=== PATIENT | female | born 1955 | race Caucasian/White ===

== ENCOUNTER 2019-07-04 05:37 | Day surgery (SDC) | payer BC ==
[2019-06-27 09:55] LABS: BASOPHILS % (AUTO) 0.7 % (0-1); EOSINOPHILS # (AUTO) 0.1 X10'3 (0-0.9); EOSINOPHILS % (AUTO) 1.9 % (0-6); LYMPHOCYTES % (AUTO) 30.3 % (21-51); MEAN CORPUSCULAR HEMOGLOBIN 31.5 PG (27.0-31.0); MEAN CORPUSCULAR HGB CONC 33.7 g/dL (33.0-36.5); MEAN CORPUSCULAR VOLUME 93.5 FL (78-98); MEAN PLATELET VOLUME 7.7 FL (7.4-10.4); MONOCYTES # (AUTO) 0.5 X10'3 (0-0.9); MONOCYTES % (AUTO) 7.5 % (2-12); NEUTROPHILS % (AUTO) 59.6 % (42-75); PRE OP HEMATOCRIT 43.2 % (35.0-45.0); PRE OP HEMOGLOBIN 14.6 g/dL (12.0-16.0); PRE OP PLATELET COUNT 312 X10'3 (140-440); RED BLOOD COUNT 4.62 X10'6 (4.20-5.60); RED CELL DISTRIBUTION WIDTH 13.6 % (11.5-14.5)
[2019-06-27 10:08] LABS: ALBUMIN 3.5 G/DL (3.4-5.0); ALKALINE PHOSPHATASE 89 IU/L (46-116); BLOOD UREA NITROGEN 12 MG/DL (7-18); BUN/CREATININE RATIO 17.6 (6.6-38.0); CALCIUM 8.1 MG/DL (8.5-10.1); CHLORIDE 104 MMOL/L (99-107); CREATININE 0.68 MG/DL (0.40-0.90); PRE OP ALT 17 U/L (30-65); PRE OP ANION GAP 3 (8-16); PRE OP AST 20 U/L (10-37); PRE OP BILIRUB, TOTAL 0.4 MG/DL (0.0-1.0); PRE OP GLUCOSE 93 MG/DL (70-104); PRE OP POTASSIUM 4.2 MMOL/L (3.4-5.1); PRE OP SODIUM 138 MMOL/L (135-145); TOTAL CARBON DIOXIDE 31.2 MMOL/L (24-32); TOTAL PROTEIN 6.9 G/DL (6.4-8.2); eGFR 88 ML/MIN
[~2019-07-04] VITALS: Ht 152.4 cm; Wt 46.8 kg
[2019-07-04] VITALS (10 sets, daily range): BP systolic 122–177; BP diastolic 79–107
[~2019-07-04 05:37] MED LIST: ARIP5TAB14 PO; DANT25CA2 PO; DULO-31 PO; GABA300T26 PO; clindamycin-Cleocin 900mg/D5W 50 ML IV ONE; famotidine 20mg tablet PO ONE; ringers solution, lacted 1,000 ML IV SCH
[2019-07-04] MEDS ORDERED: LIDOcaine 1% 30ml preserv. free vial ONE (06:42)
[2019-07-04] MEDS ORDERED: BUPIVAcaine/PF 2.5mg/ml (0.25%) 10ml vial ONE (06:42)
[2019-07-04] MEDS ORDERED: BUPIVACAINE liposomal/PF 13.3 MG/ML vial IM ONE (06:43)
[2019-07-04] MEDS ORDERED: BUPIVAcaine/PF 2.5 mg/ml (0.25%) 30ml vial ONE (06:43)
[2019-07-04] MEDS ORDERED: fentaNYL/PF 50MCG/1 ML 2ML syringe ONE (07:17)
[2019-07-04] MEDS ORDERED: midazolam 2 mg/2 ml injection ONE (07:18)
[2019-07-04] MEDS ORDERED: neostigmine methylsulfate 1 MG/ML 10ml vial ONE (07:21)
[2019-07-04] MEDS ORDERED: ondansetron/PF 4mg/2ml inj ONE (07:21)
[2019-07-04] MEDS ORDERED: glycopyrrolate 0.2mg/ml inj ONE (07:21)
[2019-07-04] MEDS ORDERED: LIDOcaine 2% (20mg/ml) 5ml vial ONE (07:21)
[2019-07-04] MEDS ORDERED: propofol inj 20 ML IV ONE (07:21)
[2019-07-04] MEDS ORDERED: dexamethasone sod phosphate 4mg/ml inj. ONE (07:21)
[2019-07-04] MEDS ORDERED: rocuronium 10mg/ml inj IV ONE ×2 (07:21→14:28)
[2019-07-04] MEDS ORDERED: sevoflurane 250ml liquid IH ONE (07:44)
[2019-07-04] MEDS ORDERED: ringers solution, lacted 1,000 ML IV SCH (08:23)
[2019-07-04] MEDS ORDERED: meperidine/PF 25mg/ml syringe IV PRN ×3 (08:25)
[2019-07-04] MEDS ORDERED: proCHLORperazine 10 MG/2 ml inj IV PRN (08:25)
[2019-07-04] MEDS ORDERED: morphine 4 MG/ML inj SYRINge IV PRN (08:25)
[2019-07-04] MEDS ORDERED: ondansetron/PF 4mg/2ml inj IV PRN (08:25)
[2019-07-04] MEDS ORDERED: morphine 2 MG/ML inj. syringe IV PRN (08:25)
[2019-07-04] MEDS ORDERED: ePHEDrine 50MG/ML INJ. ONE (08:37)
[2019-07-04] MEDS ORDERED: sugammadex 200mg/2ml injection IV ONE (08:57)
--- NOTE | 2019-07-04 09:00 | NUR ---
Received from OR via BED , accompanied by Anesthesiologist DR MARTE and report given by Anesthesiolgist. PATIENT WAKING UP, DENIES PAIN, V/S WNL, NEUROVASCULAR CHECKS INTACT, 20G PIV LUE, SCD ON, dermabonded LAP SIGHTS OF ABDOMEN CDI.
[2019-07-04] MEDS ORDERED: oxyCODONE/APAP 10/325mg tablet PO PRN (09:10)
--- NOTE | 2019-07-04 10:10 | NUR ---
PATIENT A&OX4, DENIES PAIN, V/S WNL, NEUROVASCULAR CHECKS INTACT, 20G PIV LUE D/C, SCD OFF, DERMABOND LAP SIGHTS OF ABDOMEN CDI.. I HAVE REVIEWED D/C INSTRUCTIONS WITH PATIENT AND FAMILY HAVE VERBALIZED UNDERSTANDING.PATIENT WAS D/C HOME WITH ALL BELONGINGS AND FAMILY GAVE TRANSPORT HOME WITH SCRIPT FOR PAIN MEDS.
== END 2019-07-04 10:10 | disposition home or self-care (01) ==
LOC: PAS 05:37
PROVIDERS: ATTEND Surgery
DX: K43.2 Incisional hernia without obstruction or gangrene (principal); Z11.59 Encounter for screening for other viral diseases; G89.29 Other chronic pain; F32.9 Major depressive disorder, single episode, unspecified; Z87.891 Personal history of nicotine dependence; M19.90 Unspecified osteoarthritis, unspecified site; Z79.899 Other long term (current) drug therapy; Z98.890 Other specified postprocedural states; Z88.0 Allergy status to penicillin; Z83.3 Family history of diabetes mellitus; Z82.61 Family history of arthritis
CPT/HCPCS: 36415; 49654; 80053; 82948; 85025; 93005; C1781; C9290; C9399; J1100; J2001; J2250; J2405; J2704; J2710; J3010; J3490; S2900; U0003; A4215; A4618; J7120

== ENCOUNTER 2020-10-31 10:49 | Emergency (ER) | payer BC ==
[~2020-10-31] VITALS: Ht 152.4 cm; Wt 48.2 kg
[~2020-10-31 10:49] MED LIST changes: -clindamycin-Cleocin 900mg/D5W 50 ML IV ONE; -famotidine 20mg tablet PO ONE; -ringers solution, lacted 1,000 ML IV SCH
[2020-10-31] MEDS ORDERED: ketorolac trometh. 30mg/ml inj. IM ONE (11:25)
[2020-10-31] MEDS ORDERED: diphenhydrAMINE 25mg capsule PO ONE (11:25)
[2020-10-31] MEDS ORDERED: metoclopramide 10mg tablet PO ONE (11:25)
[2020-10-31 12:00] LABS: WHITE BLOOD COUNT 8.3 X10'3 (4.5-11.0)
[2020-10-31 12:01] LABS: BASOPHILS % (AUTO) 0.2 % (0-1); EOSINOPHILS # (AUTO) 0.1 X10'3 (0-0.9); EOSINOPHILS % (AUTO) 0.9 % (0-6); HEMATOCRIT 40.6 % (35.0-45.0); LYMPHOCYTES # (AUTO) 1.9 X10'3 (1.1-4.8); LYMPHOCYTES % (AUTO) 23.5 % (21-51); MEAN CORPUSCULAR HEMOGLOBIN 32.8 PG (27.0-31.0); MEAN CORPUSCULAR HGB CONC 34.6 g/dL (33.0-36.5); MEAN CORPUSCULAR VOLUME 94.8 FL (78-98); MEAN PLATELET VOLUME 7.8 FL (7.4-10.4); MONOCYTES # (AUTO) 0.6 X10'3 (0-0.9); MONOCYTES % (AUTO) 7.8 % (2-12); NEUTROPHILS # (AUTO) 5.6 X10'3 (1.8-7.7); NEUTROPHILS % (AUTO) 67.6 % (42-75); PLATELET COUNT 416 X10'3 (140-440); RED BLOOD COUNT 4.28 X10'6 (4.20-5.60); RED CELL DISTRIBUTION WIDTH 15.7 % (11.5-14.5)
[2020-10-31 12:13] LABS: ALANINE AMINOTRANSFERASE 20 U/L (12-78); ALBUMIN 3.7 G/DL (3.4-5.0); ALKALINE PHOSPHATASE 103 IU/L (46-116); ANION GAP 7 (8-16); ASPARTATE AMINO TRANSFERASE 18 U/L (10-37); BILIRUBIN,TOTAL 0.3 MG/DL (0.1-1.0); BLOOD UREA NITROGEN 9 MG/DL (7-18); BUN/CREATININE RATIO 15.3 (6.6-38.0); CALCIUM 8.9 MG/DL (8.5-10.1); CHLORIDE 102 MMOL/L (99-107); CREATININE 0.59 MG/DL (0.40-0.90); GLUCOSE 83 MG/DL (70-104); POTASSIUM 4.5 MMOL/L (3.5-5.1); SODIUM 139 MMOL/L (135-145); TOTAL CARBON DIOXIDE 29.8 MMOL/L (24-32); TOTAL PROTEIN 7.4 G/DL (6.4-8.2); eGFR > 90 ML/MIN
[2020-10-31] MEDS ORDERED: HYDROchlorothiazide 25mg tablet PO ONE (12:40)
--- NOTE | 2020-10-31 13:04 | NUR ---
DR CHIU NOTIFIED OF PT C/O SORIA, BP
[2020-10-31] MEDS ORDERED: acetaminophen 325mg tablet PO ONE ×2 (13:05→13:10)
[2020-10-31 13:38] LABS: D-DIMER 0.39 MG/L FEU (0-0.50)
[2020-10-31] MEDS ORDERED: HYDR25TA5 PO (13:54)
[2020-10-31 14:25] VITALS: BP 183/111
== END 2020-10-31 14:26 | disposition home or self-care (01) ==
LOC: ER 10:49
DX: R51.9 Headache, unspecified (principal); I10 Essential (primary) hypertension; R07.9 Chest pain, unspecified; R06.02 Shortness of breath
CPT/HCPCS: 36415; 71045; 80053; 83880; 84484; 85025; 85379; 93005; 96372; 99285; J1885; Q0163; J8597

== ENCOUNTER 2023-08-11 11:19 | Emergency (ER) | payer BC, MEDICARE, MEDICAID ==
[~2023-08-11] VITALS: Ht 152.4 cm; Wt 64.0 kg
[~2023-08-11 11:19] MED LIST changes: +ARIP5TAB12 PO; -ARIP5TAB14 PO; -DANT25CA2 PO; -DULO-31 PO; +HYDR25TA5 PO
[2023-08-11 12:20] VITALS: BP 136/80; PULSE 80; RESP 18; TEMP 97.9; O2SAT 94
[2023-08-11 12:25] LABS: ANION GAP 7 (8-16); BLOOD UREA NITROGEN 6 MG/DL (7-18); BUN/CREATININE RATIO 10.9 (10.0-20.0); CALCIUM 8.4 MG/DL (8.5-10.1); CHLORIDE 98 MMOL/L (99-107); CREATININE 0.55 MG/DL (0.40-0.90); GLUCOSE 99 MG/DL (70-104); POTASSIUM 4.1 MMOL/L (3.5-5.1); SODIUM 132 MMOL/L (135-145); TOTAL CARBON DIOXIDE 27.5 MMOL/L (24-32); eCRCL 71 ML/MIN; eGFR > 90 ML/MIN
== END 2023-08-11 12:22 | disposition home or self-care (01) ==
LOC: ER 11:20
DX: E87.1 Hypo-osmolality and hyponatremia (principal); J44.9 Chronic obstructive pulmonary disease, unspecified; Z88.0 Allergy status to penicillin; Z79.899 Other long term (current) drug therapy; Z87.891 Personal history of nicotine dependence
CPT/HCPCS: 36415; 80048; 99284

== ENCOUNTER 2024-02-20 17:27 | Inpatient (IN) | payer MEDICARE, BC, MEDICAID ==
[~2024-02-20] VITALS: Ht 152.4 cm; Wt 50.0 kg
[~2024-02-20 17:27] MED LIST changes: -ARIP5TAB12 PO; +ATOR40TA71 PO; +CARV3.122 PO; +FLUV50TA24 PO; +FURO40TA4 PO; +GABA-535 PO; -GABA300T26 PO; -HYDR25TA5 PO; +KEP500T PO; +LISI10TA27 PO; +etomidate 2mg/ml inj. ONE
[2024-02-20] MEDS: normal saline 1000ml 1,000 ML IVB ONE (18:10)
[2024-02-20] MEDS: aspirin 81mg tab.chew PO ONE (18:21)
[2024-02-20] MEDS: aspirin 325mg tablet PO ONE (18:22)
[2024-02-20 18:34] LABS: BASOPHILS # (AUTO) 0.1 X10'3 (0-0.2); BASOPHILS % (AUTO) 0.3 % (0-1); EOSINOPHILS % (AUTO) 0 % (0-6); HEMATOCRIT 36.5 % (35.0-45.0); HEMOGLOBIN 12.3 g/dl (12.0-16.0); LYMPHOCYTES # (AUTO) 2.7 X10'3 (1.1-4.8); LYMPHOCYTES % (AUTO) 11.1 % (21-51); MEAN CORPUSCULAR HEMOGLOBIN 33.8 PG (27.0-31.0); MEAN CORPUSCULAR HGB CONC 33.7 g/dL (33.0-36.5); MEAN CORPUSCULAR VOLUME 100.2 FL (78-98); MEAN PLATELET VOLUME 9.4 FL (7.4-10.4); MONOCYTES # (AUTO) 2.1 X10'3 (0-0.9); MONOCYTES % (AUTO) 8.6 % (2-12); NEUTROPHILS # (AUTO) 19.4 X10'3 (1.8-7.7); PLATELET COUNT 340 X10'3 (140-440); RED BLOOD COUNT 3.64 X10'6 (4.20-5.60); WHITE BLOOD COUNT 24.3 X10'3 (4.5-11.0)
[2024-02-20 18:48] LABS: D-DIMER 0.32 MG/L FEU (0-0.50)
[2024-02-20 18:59] LABS: ALANINE AMINOTRANSFERASE 28 U/L (12-78); ALBUMIN 2.5 G/DL (3.4-5.0); ALBUMIN/GLOBULIN RATIO 0.7 (1.1-1.5); ALKALINE PHOSPHATASE 109 IU/L (46-116); ANION GAP 13 (8-16); ASPARTATE AMINO TRANSFERASE 22 U/L (10-37); BILIRUBIN,TOTAL 0.3 MG/DL (0.1-1.0); BLOOD UREA NITROGEN 9 MG/DL (7-18); CALCIUM 8.9 MG/DL (8.5-10.1); CHLORIDE 95 MMOL/L (99-107); GLUCOSE 109 MG/DL (70-104); POTASSIUM 4.1 MMOL/L (3.5-5.1); PRO BRAIN NATRIURETIC PEPTIDE 2395 PG/ML (0-125); SODIUM 130 MMOL/L (135-145); TOTAL CARBON DIOXIDE 21.9 MMOL/L (24-32); TOTAL PROTEIN 6.2 G/DL (6.4-8.2); eCRCL 65 ML/MIN; eGFR > 90 ML/MIN
[2024-02-20] MEDS ORDERED: iohexol 300mg/ml 100ml inj. ONE (19:19)
[2024-02-20] MEDS: CefTRIAXone/D5W-Rocephin 1gm 50 ML IV ONE (19:19)
[2024-02-20] MEDS: normal saline 1000ml 1,000 ML IV ONE ×2 (19:19→23:44)
[2024-02-20] MEDS: azithromycin/NS 500mg/250ml 250 ML IV ONE (20:09)
[2024-02-20] MEDS ORDERED: potassium Cl 20 mEq SR tablet PO PRN ×2 (21:35)
[2024-02-20] MEDS ORDERED: ondansetron/PF 4mg/2ml inj IV PRN (21:35)
[2024-02-20] MEDS ORDERED: acetaminophen 325mg tablet PO PRN (21:35)
[2024-02-20] MEDS ORDERED: magnesium sulf-water 4G/100mL 100 ML IV PRN (21:35)
[2024-02-20] MEDS ORDERED: mag hydrox/Alum hydrox/simeth 30ml oral suspension PO PRN (21:35)
[2024-02-20] MEDS ORDERED: magnesium sulf-water 2g/50mL 50 ML IV PRN (21:35)
[2024-02-20] MEDS ORDERED: magnesium Cl slow-release 64mg tablet PO PRN (21:35)
[2024-02-20] MEDS ORDERED: potassium Cl 40MEQ/1/2NS 520ml 520 ML IV PRN (21:35)
[2024-02-20] MEDS ORDERED: magnesium hydroxide 30ml (MOM) UD suspension PO PRN (21:35)
[2024-02-20] MEDS: PERFLUTREN PROTEIN-A MICROSPHR (Optison) 0.22 MG/ML 3ML VIAL IV ONE (21:55)
[2024-02-20] MEDS: normal saline 1000ml 1,000 ML IV SCH (21:58)
[2024-02-20] MEDS ORDERED: albuterol 2.5 MG/3 ML nebule NEB PRN (22:05)
[2024-02-20] MEDS: methylPREDNISolone sod succ 125mg/2ml vial IV ONE (22:17)
[2024-02-20 22:23] LABS: ABG BASE EXCESS -2.1 mmol/L (-2.0-3.0); ABG HCO3 20.1 mmol/L (21.0-28.0); ABG OXYGEN SATURATION 95.4 % (94.0-98.0); ABG PCO2 (T) 26.3 mmHg (32.0-45.0); ABG PH (T) 7.498 (7.350-7.450); ABG PO2 (T) 72.9 mmHg (83.0-108.0); ALLEN'S TEST POSITIVE; FCOHb 0.3 % (0.5-1.5); FHHb 4.6 % (0.0-5.0); FLOW 1 L/min; FMetHb 0.3 % (0.0-1.5); FO2Hb 94.8 % (94.0-98.0); MODE NASAL CANNULA; PATIENT TEMPERATURE 36.6; TOTAL HEMOGLOBIN 11.4 G/dl (12.0-16.0)
[2024-02-20] MEDS ORDERED: ASPI-611 PO (22:56)
[2024-02-20] MEDS ORDERED: DIVA500T4 PO (22:58)
[2024-02-20 23:53] LABS: BILIRUBIN,URINE NEGATIVE (Neg); CLARITY,URINE CLEAR (Clear); COLOR,URINE YELLOW (Yellow); GLUCOSE, URINE NEGATIVE (Neg); KETONES,URINE TRACE mg/dl (Neg); LEUKOCYTE ESTERASE ,URINE NEGATIVE (Neg); NITRITES, URINE NEGATIVE (Neg); OCCULT BLOOD,URINE NEGATIVE (Neg); PROTEIN,URINE NEGATIVE (Neg); UROBILINOGEN,URINE 0.2 E.U/dL (0.2-1.0)
[2024-02-21] VITALS (26 sets, daily range): BP systolic 90–143; BP diastolic 50–87; PULSE 59–101; RESP 14–26; TEMP 96.9–98.3; O2SAT 93–100
[2024-02-21 00:03] LABS: UA COLLECTION TYPE CLN CATCH MIDSTREAM
[2024-02-21] MEDS: heparin, porcine 5000 units/ml vial SQ SCH (00:09)
[2024-02-21] MEDS: ipratropium/albuterol 3ml nebule NEB SCH (00:11)
[2024-02-21] MEDS: HYDROmorphone/PF 0.2 MG/ML SYRINGE IV PRN (01:38)
[2024-02-21 03:03] LABS: BASOPHILS % (AUTO) 0 % (0-1); EOSINOPHILS % (AUTO) 0 % (0-6); HEMATOCRIT 34.4 % (35.0-45.0); HEMOGLOBIN 11.2 g/dl (12.0-16.0); LYMPHOCYTES # (AUTO) 0.4 X10'3 (1.1-4.8); LYMPHOCYTES % (AUTO) 2.2 % (21-51); MEAN CORPUSCULAR HEMOGLOBIN 33.3 PG (27.0-31.0); MEAN CORPUSCULAR HGB CONC 32.5 g/dL (33.0-36.5); MEAN CORPUSCULAR VOLUME 102.4 FL (78-98); MEAN PLATELET VOLUME 8.3 FL (7.4-10.4); MONOCYTES # (AUTO) 0.3 X10'3 (0-0.9); NEUTROPHILS # (AUTO) 16.2 X10'3 (1.8-7.7); NEUTROPHILS % (AUTO) 95.8 % (42-75); PLATELET COUNT 287 X10'3 (140-440); RED BLOOD COUNT 3.35 X10'6 (4.20-5.60); RED CELL DISTRIBUTION WIDTH 15.3 % (11.5-14.5)
[2024-02-21 03:19] LABS: ALANINE AMINOTRANSFERASE 24 U/L (12-78); ALBUMIN 2.2 G/DL (3.4-5.0); ALBUMIN/GLOBULIN RATIO 0.7 (1.1-1.5); ALKALINE PHOSPHATASE 98 IU/L (46-116); ANION GAP 12 (8-16); ASPARTATE AMINO TRANSFERASE 19 U/L (10-37); BILIRUBIN,TOTAL 0.2 MG/DL (0.1-1.0); BLOOD UREA NITROGEN 9 MG/DL (7-18); BUN/CREATININE RATIO 14.3 (10.0-20.0); CHLORIDE 107 MMOL/L (99-107); CREATININE 0.63 MG/DL (0.40-0.90); GLUCOSE 137 MG/DL (70-104); MAGNESIUM 1.5 MG/DL (1.5-2.4); POTASSIUM 5.3 MMOL/L (3.5-5.1); SODIUM 141 MMOL/L (135-145); TOTAL CARBON DIOXIDE 22.1 MMOL/L (24-32); TOTAL PROTEIN 5.5 G/DL (6.4-8.2); eCRCL 62 ML/MIN; eGFR > 90 ML/MIN
[2024-02-21] MEDS: VANCOMYCIN/WATER FOR INJ (PEG) 1.25GM/250 ML IVPB IV ONE (03:58)
[2024-02-21] MEDS: methylPREDNISolone sod succ/PF 40mg inj. IV SCH (04:20)
[2024-02-21] MEDS: piperacillin/tazo 4.5gm/100ml 100 ML IV SCH (04:21)
[2024-02-21] MEDS: pantoprazole 40 MG vial IV SCH (05:32)
[2024-02-21 06:50] LABS: OSMOLALITY 281 MOSM/K (280-300)
[2024-02-21 07:53] LABS: CHOL/HDL RATIO 1.5 (0.00-4.99); CHOLESTEROL 107 MG/DL (0-200); HDL CHOLESTEROL 71 MG/DL (35-60); LDL CHOLESTEROL 23 MG/DL (50-100); TRIGLYCERIDES 52 MG/DL (20-135)
[2024-02-21] MEDS: K and/or MAG REPLACEMENT MC SCH (08:00)
[2024-02-21] MEDS ORDERED: piperacillin/tazo 4.5gm/100ml 100 ML IV SCH (08:00)
[2024-02-21] MEDS ORDERED: levoFLOXACIN-Levaquin 750MG/D5 150 ML IV SCH (08:00)
[2024-02-21] MEDS: docusate sod 100mg capsule PO SCH (08:25)
[2024-02-21] MEDS: atorvastatin 20mg tablet PO SCH (08:26)
[2024-02-21] MEDS: aspirin 81mg, enteric-coated 1 TAB TABLET.DR PO SCH (08:26)
[2024-02-21] MEDS: divalproex sod 250mg ER (24-hour) tablet PO SCH (08:26)
[2024-02-21] MEDS: gabapentin 400mg capsule PO SCH (08:27)
[2024-02-21 10:20] LABS: C DIFF ANTIGEN NEGATIVE (NEGATIVE); C DIFF SPECIMEN=DIARRHEA? ACCEPTABLE; C DIFFICILE TOXINS A&B NEGATIVE (Neg)
[2024-02-21] MEDS: acetaminophen 325mg tablet PO PRN (14:54)
[2024-02-21] MEDS: VANCOMYCIN 1GM 200ML H20 (PEG) 200 ML IV SCH (15:37)
[2024-02-21] MEDS: CefTRIAXone 2gm/D5W 50ml BAG 50 ML IV SCH (16:41)
[2024-02-21] MEDS: morphine 2 MG/ML inj. syringe IV PRN (16:52)
[2024-02-21] MEDS: temazepam 15mg capsule PO PRN (21:24)
[2024-02-22] VITALS (9 sets, daily range): BP systolic 114–169; BP diastolic 75–110; PULSE 80–100; RESP 16–22; TEMP 96.9–97.5; O2SAT 95–99
[2024-02-22 06:32] LABS: ALANINE AMINOTRANSFERASE 22 U/L (12-78); ALBUMIN 2.2 G/DL (3.4-5.0); ALBUMIN/GLOBULIN RATIO 0.6 (1.1-1.5); ALKALINE PHOSPHATASE 88 IU/L (46-116); ANION GAP 12 (8-16); ASPARTATE AMINO TRANSFERASE 14 U/L (10-37); BILIRUBIN,TOTAL 0.2 MG/DL (0.1-1.0); BLOOD UREA NITROGEN 9 MG/DL (7-18); BUN/CREATININE RATIO 13.6 (10.0-20.0); CALCIUM 9.2 MG/DL (8.5-10.1); CHLORIDE 107 MMOL/L (99-107); CREATININE 0.66 MG/DL (0.40-0.90); GLUCOSE 162 MG/DL (70-104); MAGNESIUM 1.8 MG/DL (1.5-2.4); POTASSIUM 4.2 MMOL/L (3.5-5.1); SODIUM 139 MMOL/L (135-145); TOTAL CARBON DIOXIDE 20.1 MMOL/L (24-32); TOTAL PROTEIN 5.8 G/DL (6.4-8.2); eCRCL 59 ML/MIN; eGFR 89 ML/MIN
[2024-02-22 07:12] LABS: BASOPHILS # (AUTO) 0.1 X10'3 (0-0.2); BASOPHILS % (AUTO) 0.3 % (0-1); EOSINOPHILS % (AUTO) 0 % (0-6); HEMATOCRIT 33.1 % (35.0-45.0); HEMOGLOBIN 10.8 g/dl (12.0-16.0); LYMPHOCYTES # (AUTO) 0.6 X10'3 (1.1-4.8); LYMPHOCYTES % (AUTO) 3.2 % (21-51); MEAN CORPUSCULAR HEMOGLOBIN 33.1 PG (27.0-31.0); MEAN CORPUSCULAR HGB CONC 32.7 g/dL (33.0-36.5); MEAN CORPUSCULAR VOLUME 101.2 FL (78-98); MEAN PLATELET VOLUME 9.5 FL (7.4-10.4); MONOCYTES # (AUTO) 0.5 X10'3 (0-0.9); MONOCYTES % (AUTO) 2.4 % (2-12); NEUTROPHILS # (AUTO) 18.1 X10'3 (1.8-7.7); NEUTROPHILS % (AUTO) 94.1 % (42-75); PLATELET COUNT 338 X10'3 (140-440); RED BLOOD COUNT 3.27 X10'6 (4.20-5.60); RED CELL DISTRIBUTION WIDTH 15.3 % (11.5-14.5); WHITE BLOOD COUNT 19.2 X10'3 (4.5-11.0)
[2024-02-22] MEDS: VANCOMYCIN LEVEL IV ONE (14:29)
[2024-02-22] MEDS: nystatin 500,000 unit/5ML UD oral suspension PO SCH (20:29)
[2024-02-22] MEDS: nystatin 15 GM powder TP SCH (20:29)
[2024-02-23] VITALS (12 sets, daily range): BP systolic 132–172; BP diastolic 72–105; PULSE 68–94; RESP 14–22; TEMP 97.2–98; O2SAT 96–98
[2024-02-23] MEDS ORDERED: vancomycin/NS 1 GM ADD-VANTAGE 250 ML IV SCH (03:00)
[2024-02-23] MEDS: VANCOMYCIN/WATER FOR INJ (PEG) 1.25GM/250 ML IVPB IV SCH (03:07)
[2024-02-23 06:54] LABS: BASOPHILS % (AUTO) 0.1 % (0-1); EOSINOPHILS % (AUTO) 0 % (0-6); HEMATOCRIT 32.5 % (35.0-45.0); HEMOGLOBIN 10.6 g/dl (12.0-16.0); LYMPHOCYTES # (AUTO) 0.5 X10'3 (1.1-4.8); LYMPHOCYTES % (AUTO) 3.8 % (21-51); MEAN CORPUSCULAR HEMOGLOBIN 33.4 PG (27.0-31.0); MEAN CORPUSCULAR HGB CONC 32.7 g/dL (33.0-36.5); MEAN CORPUSCULAR VOLUME 102.2 FL (78-98); MEAN PLATELET VOLUME 9.1 FL (7.4-10.4); MONOCYTES # (AUTO) 0.3 X10'3 (0-0.9); MONOCYTES % (AUTO) 2.8 % (2-12); NEUTROPHILS # (AUTO) 11.5 X10'3 (1.8-7.7); NEUTROPHILS % (AUTO) 93.3 % (42-75); PLATELET COUNT 346 X10'3 (140-440); RED BLOOD COUNT 3.18 X10'6 (4.20-5.60); RED CELL DISTRIBUTION WIDTH 14.7 % (11.5-14.5); WHITE BLOOD COUNT 12.3 X10'3 (4.5-11.0)
[2024-02-23 07:51] LABS: ALANINE AMINOTRANSFERASE 22 U/L (12-78); ALBUMIN 2.1 G/DL (3.4-5.0); ALBUMIN/GLOBULIN RATIO 0.6 (1.1-1.5); ALKALINE PHOSPHATASE 85 IU/L (46-116); ASPARTATE AMINO TRANSFERASE 17 U/L (10-37); BILIRUBIN,TOTAL 0.2 MG/DL (0.1-1.0); BLOOD UREA NITROGEN 10 MG/DL (7-18); BUN/CREATININE RATIO 19.6 (10.0-20.0); CALCIUM 8.8 MG/DL (8.5-10.1); CHLORIDE 106 MMOL/L (99-107); CREATININE 0.51 MG/DL (0.40-0.90); GLUCOSE 145 MG/DL (70-104); MAGNESIUM 1.7 MG/DL (1.5-2.4); SODIUM 138 MMOL/L (135-145); TOTAL PROTEIN 5.6 G/DL (6.4-8.2); eCRCL 77 ML/MIN; eGFR > 90 ML/MIN
[2024-02-23 08:25] LABS: ANION GAP 12 (8-16); TOTAL CARBON DIOXIDE 20.2 MMOL/L (24-32)
[2024-02-23] MEDS: carVEDilol 3.125mg tablet PO ONE (13:46)
[2024-02-23] MEDS: lisinopril 10 MG tablet PO SCH (13:46)
[2024-02-23] MEDS: amLODIPine 5mg tablet PO ONE (16:40)
[2024-02-23] MEDS ORDERED: carVEDilol 3.125mg tablet PO SCH (20:00)
[2024-02-24] VITALS (8 sets, daily range): BP systolic 155–170; BP diastolic 85; PULSE 64–87; RESP 17–20; TEMP 97.5; O2SAT 94–97
[2024-02-24 06:42] LABS: BASOPHILS % (AUTO) 0.3 % (0-1); LYMPHOCYTES # (AUTO) 0.6 X10'3 (1.1-4.8); MEAN CORPUSCULAR HEMOGLOBIN 33.5 PG (27.0-31.0); MEAN PLATELET VOLUME 8.8 FL (7.4-10.4); MONOCYTES # (AUTO) 0.3 X10'3 (0-0.9)
[2024-02-24 06:43] LABS: EOSINOPHILS % (AUTO) 0.2 % (0-6); HEMATOCRIT 37.5 % (35.0-45.0); HEMOGLOBIN 12.5 g/dl (12.0-16.0); LYMPHOCYTES % (AUTO) 8.3 % (21-51); MEAN CORPUSCULAR HGB CONC 33.4 g/dL (33.0-36.5); MEAN CORPUSCULAR VOLUME 100.5 FL (78-98); MONOCYTES % (AUTO) 3.9 % (2-12); NEUTROPHILS # (AUTO) 6.3 X10'3 (1.8-7.7); NEUTROPHILS % (AUTO) 87.3 % (42-75); PLATELET COUNT 407 X10'3 (140-440); RED BLOOD COUNT 3.73 X10'6 (4.20-5.60); WHITE BLOOD COUNT 7.2 X10'3 (4.5-11.0)
[2024-02-24 07:02] LABS: ALANINE AMINOTRANSFERASE 25 U/L (12-78); ALBUMIN 2.6 G/DL (3.4-5.0); ALBUMIN/GLOBULIN RATIO 0.7 (1.1-1.5); ALKALINE PHOSPHATASE 101 IU/L (46-116); ANION GAP 11 (8-16); ASPARTATE AMINO TRANSFERASE 19 U/L (10-37); BILIRUBIN,TOTAL 0.3 MG/DL (0.1-1.0); BLOOD UREA NITROGEN 8 MG/DL (7-18); BUN/CREATININE RATIO 12.9 (10.0-20.0); CALCIUM 9.1 MG/DL (8.5-10.1); CHLORIDE 104 MMOL/L (99-107); CREATININE 0.62 MG/DL (0.40-0.90); GLUCOSE 132 MG/DL (70-104); MAGNESIUM 1.8 MG/DL (1.5-2.4); POTASSIUM 3.8 MMOL/L (3.5-5.1); SODIUM 138 MMOL/L (135-145); TOTAL PROTEIN 6.5 G/DL (6.4-8.2); eCRCL 63 ML/MIN; eGFR > 90 ML/MIN
[2024-02-24] MEDS: lactose-reduced food (Ensure High Protein) 237ml bottle PO SCH (07:30)
[2024-02-24] MEDS: carVEDilol 3.125mg tablet PO SCH (08:20)
[2024-02-24] MEDS ORDERED: METR-159 PO (11:25)
[2024-02-24] MEDS ORDERED: IPRA4AER IH (11:25)
[2024-02-24] MEDS ORDERED: PRED20TA PO (11:25)
[2024-02-24] MEDS ORDERED: LEVO750T68 PO (11:25)
[2024-02-24] MEDS ORDERED: HYDR-3972 PO (12:36)
[2024-02-24] MEDS ORDERED: VANCOMYCIN LEVEL IV ONE (14:30)
== END 2024-02-24 13:25 | disposition home or self-care (01) | DRG 871 ==
LOC: ER 17:28 → ED HOLD 21:15 → UNDOADMIN 21:15 → ED HOLD 23:35 → EDBEDREQ 02-21 00:45 → ED HOLD 02-21 01:27 → CICU 2S 02-21 01:27 → PCU 3S 02-21 11:55
PROVIDERS: ADMIT Internal Medicine Pulmonary Disease; ATTEND Internal Medicine
PROC: BW251ZZ Computerized Tomography (CT Scan) of Chest, Abdomen and Pelvis using Low Osmolar Contrast (ICD-10-PCS; principal; 2024-02-20)
DX: A41.9 Sepsis, unspecified organism (principal); I50.31 Acute diastolic (congestive) heart failure; J15.9 Unspecified bacterial pneumonia; J96.01 Acute respiratory failure with hypoxia; J69.0 Pneumonitis due to inhalation of food and vomit; E87.1 Hypo-osmolality and hyponatremia; J44.1 Chronic obstructive pulmonary disease with (acute) exacerbation; I48.92 Unspecified atrial flutter; J44.0 Chronic obstructive pulmonary disease with (acute) lower respiratory infection; Z20.822 Contact with and (suspected) exposure to COVID-19; I48.91 Unspecified atrial fibrillation; I25.10 Atherosclerotic heart disease of native coronary artery without angina pectoris; K52.9 Noninfective gastroenteritis and colitis, unspecified; R91.1 Solitary pulmonary nodule; I25.2 Old myocardial infarction; Z95.1 Presence of aortocoronary bypass graft; Z88.0 Allergy status to penicillin; Z79.899 Other long term (current) drug therapy; Z79.82 Long term (current) use of aspirin; Z87.891 Personal history of nicotine dependence
CPT/HCPCS: 36415; 36600; 71045; 71260; 74177; 76705; 80053; 80061; 80164; 80202; 81003; 82803; 83605; 83735; 83880; 83930; 84145; 84484; 85018; 85025; 85379; 85651; 87040; 87081; 87324; 87449; 87502; 87503; 87811; 93005; 93308; 94640; 94760; 97161; 97530; 99291; 99292; A4615; A4620; A6258; G0378; J0456; J0696; J1171; J1644; J2270; J2470; J2543; J2919; J3372; J3490; J7030; Q9967

== ENCOUNTER 2024-03-18 07:31 | Day surgery (SDC) | payer MEDICARE, BC, MEDICAID ==
[~2024-03-18] VITALS: Ht 152.4 cm; Wt 50.9 kg
[~2024-03-18 07:31] MED LIST changes: +ASPI-611 PO; +DIVA500T4 PO; -FLUV50TA24 PO; -FURO40TA4 PO; +HYDR-3972 PO; +IPRA4AER IH; -KEP500T PO; +LEVO750T68 PO; +METR-159 PO; +PRED20TA PO; -etomidate 2mg/ml inj. ONE
[2024-03-18 07:58] VITALS: BP 161/93; PULSE 78; RESP 20; TEMP 98.4
[2024-03-18] MEDS ORDERED: SODIUM (08:08)
[2024-03-18] MEDS ORDERED: POTA10TA52 PO (08:08)
[2024-03-18] MEDS ORDERED: TIZA4CAP PO (08:08)
[2024-03-18] MEDS ORDERED: FURO40TA4 PO (08:08)
[2024-03-18] MEDS ORDERED: midazolam 1 mg/ML 2ml injection ONE (08:36)
[2024-03-18] MEDS ORDERED: propofol inj 20 ML IV ONE (08:36)
[2024-03-18] MEDS ORDERED: LIDOcaine 2% (20mg/ml) 5ml vial ONE (08:36)
[2024-03-18] MEDS ORDERED: fentaNYL/PF 50MCG/1 ML 2ML syringe ONE (08:36)
[2024-03-18 09:20] VITALS: BP 125/82; PULSE 86; RESP 16; O2SAT 100
[2024-03-18 09:30] VITALS: BP 144/87; PULSE 78; RESP 15; O2SAT 100
[2024-03-18 09:40] VITALS: BP 151/90; PULSE 78; RESP 18; O2SAT 100
[2024-03-18 09:50] VITALS: BP 142/89; PULSE 78; RESP 14; O2SAT 100
[2024-03-18 10:05] VITALS: BP 134/81; PULSE 74; RESP 18; O2SAT 96
== END 2024-03-18 10:05 | disposition home or self-care (01) ==
LOC: GI LAB 07:31
PROVIDERS: ATTEND Internal Medicine Gastroenterology
DX: K52.9 Noninfective gastroenteritis and colitis, unspecified (principal); K63.5 Polyp of colon; K57.30 Diverticulosis of large intestine without perforation or abscess without bleeding; I10 Essential (primary) hypertension; J44.9 Chronic obstructive pulmonary disease, unspecified; I25.110 Atherosclerotic heart disease of native coronary artery with unstable angina pectoris; I25.2 Old myocardial infarction; F39 Unspecified mood [affective] disorder; I48.91 Unspecified atrial fibrillation; Z95.1 Presence of aortocoronary bypass graft; Z88.0 Allergy status to penicillin; Z98.890 Other specified postprocedural states; Z79.899 Other long term (current) drug therapy
CPT/HCPCS: 45380; 88305; J2003; J2250; J2704; J3010; J7030; Z7512

== ENCOUNTER 2024-04-01 11:07 | Emergency (ER) | payer MEDICARE, BC, MEDICAID ==
[~2024-04-01] VITALS: Ht 152.4 cm; Wt 50.0 kg
[~2024-04-01 11:07] MED LIST changes: +FURO40TA4 PO; -HYDR-3972 PO; -LEVO750T68 PO; -METR-159 PO; +POTA10TA52 PO; -PRED20TA PO; +SODIUM; +TIZA4CAP PO
[2024-04-01 12:14] LABS: BASOPHILS % (AUTO) 0.5 % (0-1); EOSINOPHILS % (AUTO) 0.3 % (0-6); HEMATOCRIT 35.7 % (35.0-45.0); HEMOGLOBIN 11.9 g/dl (12.0-16.0); LYMPHOCYTES # (AUTO) 2.2 X10'3 (1.1-4.8); LYMPHOCYTES % (AUTO) 23.7 % (21-51); MEAN CORPUSCULAR HGB CONC 33.4 g/dL (33.0-36.5); MEAN CORPUSCULAR VOLUME 98.8 FL (78-98); MEAN PLATELET VOLUME 7.9 FL (7.4-10.4); MONOCYTES % (AUTO) 10.7 % (2-12); NEUTROPHILS # (AUTO) 5.9 X10'3 (1.8-7.7); NEUTROPHILS % (AUTO) 64.8 % (42-75); PLATELET COUNT 562 X10'3 (140-440); RED BLOOD COUNT 3.61 X10'6 (4.20-5.60); RED CELL DISTRIBUTION WIDTH 14.8 % (11.5-14.5); WHITE BLOOD COUNT 9.1 X10'3 (4.5-11.0)
[2024-04-01 12:36] LABS: ALANINE AMINOTRANSFERASE 20 U/L (12-78); ALBUMIN 2.7 G/DL (3.4-5.0); ALBUMIN/GLOBULIN RATIO 0.8 (1.1-1.5); ALKALINE PHOSPHATASE 132 IU/L (46-116); ANION GAP 9 (8-16); ASPARTATE AMINO TRANSFERASE 26 U/L (10-37); BILIRUBIN,TOTAL 0.3 MG/DL (0.1-1.0); BLOOD UREA NITROGEN 7 MG/DL (7-18); BUN/CREATININE RATIO 16.3 (10.0-20.0); CALCIUM 9.1 MG/DL (8.5-10.1); CHLORIDE 101 MMOL/L (99-107); CREATININE 0.43 MG/DL (0.40-0.90); GLUCOSE 143 MG/DL (70-104); POTASSIUM 3.6 MMOL/L (3.5-5.1); SODIUM 141 MMOL/L (135-145); TOTAL CARBON DIOXIDE 31.2 MMOL/L (24-32); TOTAL PROTEIN 6.2 G/DL (6.4-8.2); eCRCL 91 ML/MIN; eGFR > 90 ML/MIN
[2024-04-01 12:38] LABS: LIPASE 39 U/L (16-77)
[2024-04-01] MEDS: normal saline 1000ML IV soln IVB ONE (14:50)
[2024-04-01] MEDS: morphine 4 MG/ML inj SYRINge IV ONE (15:56)
[2024-04-01] MEDS: glycopyrrolate 0.2mg/ml inj IV ONE (15:57)
[2024-04-01 16:46] VITALS: BP 126/82; PULSE 90; RESP 20; TEMP 98; O2SAT 100
== END 2024-04-01 17:10 | disposition home or self-care (01) ==
LOC: ER 11:08
DX: R10.84 Generalized abdominal pain (principal); J44.9 Chronic obstructive pulmonary disease, unspecified; I25.10 Atherosclerotic heart disease of native coronary artery without angina pectoris; Z88.0 Allergy status to penicillin; Z98.890 Other specified postprocedural states; Z95.1 Presence of aortocoronary bypass graft; Z79.82 Long term (current) use of aspirin
CPT/HCPCS: 36415; 80053; 83690; 84145; 85025; 96361; 96374; 96375; 99284; J2270; J3490; J7030

== ENCOUNTER 2024-04-22 07:37 | Day surgery (SDC) | payer MEDICARE, BC, MEDICAID ==
[~2024-04-22] VITALS: Ht 152.4 cm; Wt 48.1 kg
[~2024-04-22 07:37] MED LIST changes: +ALPR0.255
[2024-04-22 08:08] VITALS: BP 135/79; PULSE 73; RESP 16
[2024-04-22] MEDS ORDERED: propofol 10mg/ml 20ml vial IV ONE (09:49)
[2024-04-22] MEDS ORDERED: midazolam 1 mg/ML 2ml injection ONE (09:50)
[2024-04-22 10:05] VITALS: BP 116/72; PULSE 69; RESP 13; O2SAT 99
[2024-04-22 10:15] VITALS: BP 113/68; PULSE 68; RESP 15; O2SAT 100
[2024-04-22 10:25] VITALS: BP 112/72; PULSE 66; RESP 16; O2SAT 100
[2024-04-22 10:35] VITALS: BP 112/74; PULSE 69; RESP 18; O2SAT 100
== END 2024-04-22 11:01 | disposition home or self-care (01) ==
LOC: GI LAB 07:37
PROVIDERS: ATTEND Internal Medicine Gastroenterology
DX: R10.13 Epigastric pain (principal); K92.1 Melena; K31.89 Other diseases of stomach and duodenum; K26.9 Duodenal ulcer, unspecified as acute or chronic, without hemorrhage or perforation; I48.91 Unspecified atrial fibrillation; I25.10 Atherosclerotic heart disease of native coronary artery without angina pectoris; J44.9 Chronic obstructive pulmonary disease, unspecified; I25.2 Old myocardial infarction; Z88.0 Allergy status to penicillin
CPT/HCPCS: 43239; 88305; A4620; J2250; J2704; J7030; Z7512

== ENCOUNTER 2024-06-11 19:07 | Emergency (ER) | payer MEDICARE, BC, MEDICAID ==
[~2024-06-11] VITALS: Ht 152.4 cm; Wt 55.0 kg
--- NOTE | 2024-06-11 19:17 | ELECTROCARDIOGRAPH REPORT ---
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 Lavelle Alan Measurements Intervals [place] Rate: 76 P: 73 CT: 169 QRS: 98 QRSD: 92 T: 53 QT: 388 QTc: 437 Interpretive Statements Sinus rhythm Right axis deviation Low voltage, precordial leads Electronically Signed On 06-12-2024 15:46:[address] Lavelle Alan Please click the below link to view image of tracing.
[2024-06-11 19:38] LABS: EOSINOPHILS # (AUTO) 0.1 X10'3 (0-0.9); EOSINOPHILS % (AUTO) 1.3 % (0-6); HEMATOCRIT 30.8 % (35.0-45.0); HEMOGLOBIN 10.5 g/dl (12.0-16.0); LYMPHOCYTES # (AUTO) 2.1 X10'3 (1.1-4.8); LYMPHOCYTES % (AUTO) 51.1 % (21-51); MEAN CORPUSCULAR HEMOGLOBIN 32.8 PG (27.0-31.0); MEAN CORPUSCULAR HGB CONC 33.9 g/dL (33.0-36.5); MEAN CORPUSCULAR VOLUME 96.7 FL (78-98); MEAN PLATELET VOLUME 7.2 FL (7.4-10.4); MONOCYTES # (AUTO) 0.4 X10'3 (0-0.9); MONOCYTES % (AUTO) 9.2 % (2-12); NEUTROPHILS # (AUTO) 1.5 X10'3 (1.8-7.7); NEUTROPHILS % (AUTO) 37.4 % (42-75); PLATELET COUNT 222 X10'3 (140-440); RED BLOOD COUNT 3.18 X10'6 (4.20-5.60); RED CELL DISTRIBUTION WIDTH 19.3 % (11.5-14.5); WHITE BLOOD COUNT 4.1 X10'3 (4.5-11.0)
[2024-06-11 19:55] LABS: ALANINE AMINOTRANSFERASE 70 U/L (12-78); ALBUMIN 2.4 G/DL (3.4-5.0); ALBUMIN/GLOBULIN RATIO 0.9 (1.1-1.5); ALKALINE PHOSPHATASE 218 IU/L (46-116); ANION GAP 4 (8-16); ASPARTATE AMINO TRANSFERASE 153 U/L (10-37); BILIRUBIN,TOTAL 0.2 MG/DL (0.1-1.0); BLOOD UREA NITROGEN 7 MG/DL (7-18); CALCIUM 7.3 MG/DL (8.5-10.1); CHLORIDE 107 MMOL/L (99-107); CREATININE 0.54 MG/DL (0.40-0.90); POTASSIUM 3.6 MMOL/L (3.5-5.1); SODIUM 142 MMOL/L (135-145); TOTAL CARBON DIOXIDE 31.4 MMOL/L (24-32); TOTAL PROTEIN 5.1 G/DL (6.4-8.2); eCRCL 73 ML/MIN; eGFR > 90 ML/MIN
[2024-06-11 20:02] LABS: PRO BRAIN NATRIURETIC PEPTIDE 174 PG/ML (0-125)
[2024-06-11 20:04] LABS: ANISOCYTOSIS 1+; PLATELET ESTIMATE NORMAL; STOMATOCYTES 1+; TOTAL CELLS COUNTED 100
[2024-06-11 20:07] LABS: GLUCOSE 111 MG/DL (70-104)
[2024-06-11 20:09] LABS: BILIRUBIN,URINE NEGATIVE (Neg); CLARITY,URINE CLEAR (Clear); COLOR,URINE YELLOW (Yellow); GLUCOSE, URINE NEGATIVE (Neg); KETONES,URINE NEGATIVE (Neg); LEUKOCYTE ESTERASE ,URINE NEGATIVE (Neg); NITRITES, URINE NEGATIVE (Neg); OCCULT BLOOD,URINE NEGATIVE (Neg); PROTEIN,URINE NEGATIVE (Neg); UROBILINOGEN,URINE 0.2 E.U/dL (0.2-1.0)
[2024-06-11 20:12] LABS: UA COLLECTION TYPE CLN CATCH MIDSTREAM
--- NOTE | 2024-06-11 21:00 | RADIOLOGY REPORT ---
Clinical History CP Comparison CXR on 02/21/2024, 1 images. Technique: A single AP/PA chest radiograph was provided for review. Without Contrast MATT BOBBY, [id number] FINDINGS: Lungs: Clear lungs without pneumothorax, focal consolidation, pleural effusion or mass. Heart: Normal in size and configuration. Mediastinum: Median sternotomy wires and surgical clips overlie the cardiac silhouette. Vasculature: Within normal limits. Tubes/lines: None. Osseous structures: No evidence for acute fracture. IMPRESSION: Clear lungs. Unremarkable mediastinum. Normal pulmonary vasculature. Suspect prior CABG. This report was electronically signed by Ousmane Sung MD on 06/11/2024 8:57:06 PM.
--- NOTE | 2024-06-11 22:55 | Physician Documentation ---
History of Present Illness ~ Chief Complaint: Weakness Stated Complaint: WEAKNESS Time Seen by MD: 22:49 OK to notify your PCP?: Yes Primary Medical Doctor: DR YUNG Mode of Arrival: EMS HPI Patient presents to the emergency room with multiple complaints. Complaints include weakness, bowel issues, diarrhea which has since resolved, nausea, vision changes. Symptoms has been going on for months and it was began to be progressively worsening. She came in today as she states she feels weaker than usual. Denies dysuria or fevers. She was working with her primary care provider regarding these issues. She reports having a colonoscopy to investigate her GI symptoms which was negative. She was denies one-sided s ymptoms. Vision changes are vague and intermittent and described as blurring. When describing the dizziness she feels like there it was movement but not all the time Medication Reconciliation Allergies: Coded Allergies: Penicillins (Verified Allergy, Mild, SWELLING, 06/11/24) Scheduled Aspirin (Aspir 81), 1 TAB PO DAILY, (Reported) Atorvastatin Calcium (Atorvastatin Calcium), 1 TAB PO DAILY, (Reported) Carvedilol (Carvedilol), 1 TAB PO BID, (Reported) Divalproex Sodium (Depakote Er), 1 TAB PO DAILY, (Reported) Furosemide 40 MG (Lasix), 1 TAB PO DAILY, (Reported) Gabapentin (Gabapentin), 1 CAP PO TID, (Reported) Lisinopril (Lisinopril), 1 TAB PO DAILY, (Reported) Potassium Bicarbonate/Cit AC (Effer-K 10 Meq Tablet Eff), 1 TAB PO DAILY, (Reported) Tizanidine Hcl (Zanaflex), 1 CAP PO PRN, (Reported) Scheduled PRN Ipratropium/Albuterol Sulfate (Combivent Respimat Inhal [place]), 2 PUFFS IH Q4H PRN for SOB or wheezing Miscellaneous Medications Alprazolam (Alprazolam), (Reported) [Sodium Tabs], 1, (Reported) Past Medical History Past Medical History: Coronary Artery Disease, Myocardial Infarction, COPD, Hernia Past Surgical History: coronary bypass surgery, other Other Past Surgical History: hernia repair sx Patient History: FH: diabetes mellitus Alcohol Use: Rarely Drug Use: none Lives with: Other Lives In: Home Occupation: retired Review of Systems ROS All review of systems negative except as per HPI Physical Exam Vital Signs: Temperature: 97.1, Source: Oral, Heart Rate: 90, Respiratory Rate: 16, BP: 126/84, Pulse Oximetry: 94, Weight: 55.000 Oxygen Flow Rate: 2.0 Physical Exam General: Patient is awake, alert, oriented x4 in no acute distress Head: Normocephalic and atraumatic. Eyes: Conjunctival normal. EOMI. PERRL. ENT: Mucous membranes moist. Neck: Supple, trachea is midline. Chest: Clear to auscultation bilaterally without rales, rhonchi, or wheezes. There is no accessory muscle use or retractions. Cardiac: RRR without murmurs, gallops, or rubs. Abd: Soft, nondistended, nontender, with normoactive bowel sounds. No guarding, rebound, or rigidity. Extremities: Normal strength. Normal range of motion. No deformities or edema. Back: No midline spinal or CVA tenderness. Skin: Warm and dry with no significant rash appreciated. Neuro: Cranial nerves II-XII grossly intact. No focal neuro deficits. Progress Results/Orders Results/Orders Orders - ERIC ALEMAN MD Chest,Single View (06/11/24 19:11) Monitor (06/11/24 19:11) Saline Lock (06/11/24 19:11) Oxygen (06/11/24 19:11) Straight Cath For Urine Sample (06/11/24 19:11) Completed Orders - ERIC ALEMAN MD Chest,Single View (06/11/24 19:11) Cbc/Diff (06/11/24 19:11) PBNP (06/11/24 19:11) Electrocardiogram (06/11/24 19:11) CMP (06/11/24 19:11) Hs Troponin I W Calculations (06/11/24 19:11) Hs Troponin I W Calculations (06/11/24 21:11) Hs Troponin I W Calculations (06/11/24 22:11) Urinalysis, Cult If Indicated (06/11/24 19:11) Man Diff (06/11/24 19:31) Vital Signs 06/11/24 06/11/24 06/11/24 19:11 19:28 22:01 Temp 97.5 97.1 Pulse 72 90 Resp 16 16 B/P (MAP) 105/73 126/84 (98) Pulse Ox 99 94 O2 Flow Rate 0 2.0 Laboratory Tests Test 06/11/24 19:31 06/11/24 19:50 06/11/24 21:20 06/11/24 22:29 White Blood Count 4.1 L Red Blood Count 3.18 L Hemoglobin 10.5 L Hematocrit 30.8 L Mean Corpuscular Volume 96.7 Mean Corpuscular Hemoglobin 32.8 H Mean Corpuscular Hemoglobin Concent 33.9 Red Cell Distribution Width 19.3 H Platelet Count 222 Mean Platelet Volume 7.2 L Neutrophils (%) (Auto) 37.4 L Lymphocytes (%) (Auto) 51.1 H Monocytes (%) (Auto) 9.2 Eosinophils (%) (Auto) 1.3 Basophils (%) (Auto) 1.0 Neutrophils # (Auto) 1.5 L Lymphocytes # (Auto) 2.1 Monocytes # (Auto) 0.4 Eosinophils # (Auto) 0.1 Basophils # (Auto) 0.0 CBC Comment Differential Total Cells Counted 100 Neutrophils % (Manual) 42.0 Lymphocytes % (Manual) 53.0 H Monocytes % (Manual) 1.0 L Eosinophils % (Manual) 3.0 Basophils % (Manual) 1.0 Platelet Estimate Normal Red Blood Cell Morphology Perf Basophilic Stippling Anisocytosis 1+ Stomatocytes 1+ Sodium Level 142 Potassium Level 3.6 Chloride Level 107 Carbon Dioxide Level 31.4 Anion Gap 4 L Blood Urea Nitrogen 7 Creatinine 0.54 Estimated GFR/1.73 m2 > 90 BUN/Creatinine Ratio 13.0 Glucose Level 111 H Calcium Level 7.3 L Total Bilirubin 0.2 Aspartate Amino Transf (AST/SGOT) 153 H Alanine Aminotransferase (ALT/SGPT) 70 Alkaline Phosphatase 218 H Troponin I High Sensitivity 13 10 8 Pro-B-Type Natriuretic Peptide 174 H Total Protein 5.1 L Albumin 2.4 L Globulin 2.7 Albumin/Globulin Ratio 0.9 L Chemistry Comments Urine Specimen Description Cln catch midstream Urine Color Yellow Urine Clarity Clear Urine pH 6.0 Urine Specific [place] <=1.005 Urine Protein Negative Urine Glucose (UA) Negative Urine Ketones Negative Urine Occult Blood Negative Urine Nitrite Negative Urine Bilirubin Negative Urine Urobilinogen 0.2 Urine Leukocyte Esterase Negative Urine Culture Indicated Not ind Volume Urine Centrifuged 10 ml Urine Comment Troponin I High Sens Percent Delta 23 20 Troponin I Hi Sens Absolute Change -3 -2 Medical Decision Making Findings Patient presents to the emergency room with generalized weakness it was well as bowel changes. Differentials include but are not limited to electrolyte disturbances, viral syndrome, deconditioning, multiple sclerosis, dehydration, urinary tract infection therefore emergent labs ordered which were reassuring for no major pathologic derangements. She has passed the road test. Symptoms are chronic in nature. She does have a primary care doctor working with her regarding her symptoms. Labs do show mild anemia which he was chronic in nature. Possible viral syndrome. ER precautions discussed. The need to follow up with her doctor discussed Departure Disposition: HOME / SELF CARE / HOMELESS Impression: Primary Impression: Weakness Condition: Fair Discharge Instructions: Weakness, [id number] Additional Instructions: Your lab workup was reassuring today for no major derangements. This is not to say that that it was nothing going on. Call your doctor tomorrow to arrange for follow up for further investigation into generalized weakness. you may need referral for physical therapy and workup for other causes of generalized weakness. Referrals: NO PRIMARY CARE PROVIDER (PCP) Education Educated: Patient Educated regarding: diagnosis, need for follow up Signature Scribe Signature: No scribe Attestation: The note accurately reflects work and decisions made by me.Eric Aleman MD 06/11/24 23:42 ERIC ALEMAN MD June 11, 2024 22:55
[2024-06-11 23:50] VITALS: BP 139/98; PULSE 88; RESP 18; TEMP 97.5; O2SAT 96
== END 2024-06-11 23:54 | disposition home or self-care (01) ==
LOC: ER 19:07
DX: R53.1 Weakness (principal); R11.0 Nausea; I25.10 Atherosclerotic heart disease of native coronary artery without angina pectoris; J44.9 Chronic obstructive pulmonary disease, unspecified; Z88.0 Allergy status to penicillin; Z88.8 Allergy status to other drugs, medicaments and biological substances; Z95.1 Presence of aortocoronary bypass graft; Z98.890 Other specified postprocedural states
CPT/HCPCS: 36415; 71045; 80053; 81003; 83880; 84484; 85007; 85025; 93005; 99285

== ENCOUNTER 2024-08-07 15:58 | Outpatient (CLI) | payer MEDICARE, BC, MEDICAID ==
[~2024-08-07 15:58] MED LIST changes: -ALPR0.255; +AMLO5TAB PO; +ARIP5TAB12 PO; -DIVA500T4 PO; +FOLI0.4T6 PO; -FURO40TA4 PO; -LISI10TA27 PO; +LISI20TA28 PO; +MULT-1085 PO; -POTA10TA52 PO; +PRED10TA23 PO; +QUET50TA PO; +THIA50TA10 PO; +VANC125C11 PO
[2024-08-07] MEDS: albuterol 2.5 MG/3 ML nebule NEB ONE (16:43)
[2024-08-07 16:48] VITALS: PULSE 86; RESP 16; O2SAT 99
[2024-08-07 17:20] VITALS: PULSE 88; RESP 16
== END 2024-08-07 23:59 | disposition home or self-care (01) ==
LOC: RT 15:58
PROVIDERS: ATTEND Student in an Organized Health Care Education/Training Program
DX: J44.9 Chronic obstructive pulmonary disease, unspecified (principal); R06.09 Other forms of dyspnea; Z87.891 Personal history of nicotine dependence
CPT/HCPCS: 94060; 94727; 94729; 94760

== ENCOUNTER 2024-12-19 12:28 | Emergency (ER) | payer MEDICARE, BC, MEDICAID ==
[~2024-12-19] VITALS: Ht 152.4 cm; Wt 59.0 kg
[~2024-12-19 12:28] MED LIST changes: -FOLI0.4T6 PO; -PRED10TA23 PO
--- NOTE | 2024-12-19 12:32 | Physician Documentation ---
History of Present Illness General Chief Complaint: Seizure Stated Complaint: SEIZURE Time Seen by MD: 12:32 Primary Medical Doctor: DR YUNG History of Present Illness Initial Comments 69-year-old female with a history of seizures presents to the emergency room after a seizure. The patient has a several minutes seizure with a fairly prolonged postictal period today. The patient was still confused and postictal when the paramedics arrived. The patient states she has had 6-8 seizures in her life and she has never been taking seizure medication. The patient does not want to be taking seizure medication. She denies any recent illnesses. She denies any change in her medications. She denies any fevers chills nausea or vomiting. Medication Reconciliation Allergies: Coded Allergies: Penicillins (Verified Allergy, Mild, SWELLING, 07/13/24) Scheduled Amlodipine Besylate (Amlodipine Besylate), 1 TABLET PO DAILY Aripiprazole* (Abilify*), 5 MG PO DAILY, (Reported) Aspirin (Aspir 81), 1 TAB PO DAILY, (Reported) Atorvastatin Calcium (Atorvastatin Calcium), 1 TAB PO DAILY, (Reported) Carvedilol (Carvedilol), 1 TAB PO BID, (Reported) Gabapentin (Gabapentin), 1 CAP PO TID, (Reported) Lisinopril (Lisinopril), 1 TAB PO DAILY, (Reported) Multivitamin (Multi Vitamin Daily), 1 TAB PO DAILY Quetiapine Fumarate (Seroquel), 1 TAB PO HS, (Reported) Thiamine HCl (Vitamin B-1), 1 TAB PO DAILY Tizanidine Hcl (Zanaflex), 1 CAP PO PRN, (Reported) Vancomycin HCl (Vancocin HCl), 1 CAP PO Q6H, (Reported) Scheduled PRN Ipratropium/Albuterol Sulfate (Combivent Respimat Inhal [place]), 2 PUFFS IH Q4H PRN for SOB or wheezing Miscellaneous Medications [Sodium Tabs], 1, (Reported) Past Medical History Past Medical History: No Pertinent History, Coronary Artery Disease, Myocardial Infarction, COPD, Hernia Past Surgical History: coronary bypass surgery, other Other Past Surgical History: hernia repair sx Smoking: Quit greater than 1 year Alcohol Use: Rarely Drug Use: none Lives with: Other Lives In: Home Occupation: retired Review of Systems All Other Systems at this time: Reviewed and Negative Physical Exam Physical Exam Physical Exam VITALS: Reviewed and as above. GENERAL: Alert, no apparent distress. HEENT: Normocephalic, atraumatic, PERRL, EOMI, dry mucosa, no erythema RESPIRATORY: Lungs clear, normal breath sounds, no respiratory distress. CHEST: No accessory muscle use, no retractions CV: Regular rate, rhythm, no edema, no murmur, No: JVD GI: Soft, non-tender, bowels sounds present, no rebound, guarding, or rigidity BACK: No CVA tenderness, or swelling MUSCULOSKELETAL No deformities, no edema SKIN: Warm and dry, no rash NEURO: Oriented x4, No motor or sensory deficit PSYCH: Normal mood and affect, no agitation Progress Results/Orders Results/Orders Orders - OHZULEMA WOOD MD Electrocardiogram (12/19/24 ) Completed Orders - ZULEMA HU MD Cbc/Diff (12/19/24 12:36) BMP (12/19/24 12:36) MG (12/19/24 12:36) Procalcitonin (12/19/24 12:36) Normal Saline 1000ml (0.9% Sodium Chlori (12/19/24 12:40) Electrocardiogram (12/19/24 ) Potassium Cl Sr Tablet (K-Dur Tablet) (12/19/24 13:32) Magnesium Sulf-Water 2g/50ml (Magnesium (12/19/24 13:35) Urinalysis, Cult If Indicated (12/19/24 14:09) Vital Signs 12/19/24 12/19/24 12/19/24 12/19/24 12:30 12:45 15:28 16:39 Temp 99.0 99.0 99.0 Pulse 91 73 81 Resp 16 18 15 18 B/P (MAP) 111/74 125/84 (98) 126/94 Pulse Ox 99 100 100 O2 Flow Rate 0 0 Laboratory Tests Test 12/19/24 12:54 12/19/24 14:18 White Blood Count 10.1 Red Blood Count 3.16 L Hemoglobin 10.7 L Hematocrit 31.5 L Mean Corpuscular Volume 99.8 H Mean Corpuscular Hemoglobin 33.7 H Mean Corpuscular Hemoglobin Concent 33.8 Red Cell Distribution Width 20.8 H Platelet Count 304 Mean Platelet Volume 7.6 Neutrophils (%) (Auto) 72.1 Lymphocytes (%) (Auto) 15.0 L Monocytes (%) (Auto) 12.1 H Eosinophils (%) (Auto) 0.4 Basophils (%) (Auto) 0.4 Neutrophils # (Auto) 7.3 Lymphocytes # (Auto) 1.5 Monocytes # (Auto) 1.2 H Eosinophils # (Auto) 0.0 Basophils # (Auto) 0.0 CBC Comment Platelet Estimate Normal Red Blood Cell Morphology Perf Polychromasia 1+ Basophilic Stippling Anisocytosis 3+ Stomatocytes 2+ Sodium Level 140 Potassium Level 3.2 L Chloride Level 98 L Carbon Dioxide Level 33.9 H Anion Gap 8 Blood Urea Nitrogen 9 Creatinine 0.94 H Estimated GFR/1.73 m2 59 BUN/Creatinine Ratio 9.6 L Glucose Level 158 H Calcium Level 7.7 L Magnesium Level 1.4 L Albumin 2.7 L Procalcitonin 1.36 H Chemistry Comments Urine Specimen Description Non-specified Urine Color Yellow Urine Clarity Clear Urine pH 6.0 Urine Specific [place] <=1.005 Urine Protein Negative Urine Glucose (UA) Negative Urine Ketones Negative Urine Occult Blood Negative Urine Nitrite Negative Urine Bilirubin Negative Urine Urobilinogen 0.2 Urine Leukocyte Esterase Negative Urine Culture Indicated Not ind Volume Urine Centrifuged 10 ml Urine Comment Medical Decision Making Additional information obtaine: old records, family Findings The patient had a seizure she does not want to be taking seizure medication she was found to be hypomagnesemic as well as hypokalemic the patient will be treated for these. Prior hospitalizations has been reviewed. The patient's pulse oximetry was interpreted as normal and adequate. The patient had a normal neurologic exam in the emergency department and will be discharged. Differential Diagnosis Seizure, pseudo-seizure, tremors Departure Time of Disposition: 14:50 Disposition: 01 HOME / SELF CARE / HOMELESS Impression: Primary Impression: Hypokalemia Additional Impressions: Hypomagnesemia Seizure disorder Discharge Instructions: Seizure, Adult Referrals: NO PRIMARY CARE PROVIDER (PCP) Signature Scribe Signature: no scribe Attestation: The note accurately reflects work and decisions made by me.Zulema Hu MD 12/23/24 07:50 ZULEMA HU MD Dec 19, 2024 12:32
--- NOTE | 2024-12-19 12:53 | ELECTROCARDIOGRAPH REPORT ---
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 ISIAH Mae Measurements Intervals [place] Rate: 94 P: 54 [place]: 141 QRS: 79 QRSD: 85 T: 45 QT: 396 QTc: 496 Interpretive Statements Sinus rhythm Supraventricular bigeminy Low voltage, precordial leads Borderline T abnormalities, anterior leads Baseline wander in lead(s) V2 Electronically Signed On 12-22-2024 15:14:[address] ISIAH Mae Please click the below link to view image of tracing.
[2024-12-19 13:02] LABS: MEAN PLATELET VOLUME 7.6 FL (7.4-10.4); RED CELL DISTRIBUTION WIDTH 20.8 % (11.5-14.5)
[2024-12-19 13:12] LABS: CREATININE 0.94 MG/DL (0.40-0.90); TOTAL CARBON DIOXIDE 33.9 MMOL/L (24-32); eCRCL 41 ML/MIN; eGFR 59 ML/MIN
[2024-12-19] MEDS: normal saline 1000ML IV soln IVB ONE (13:15)
[2024-12-19 13:20] LABS: PLATELET ESTIMATE NORMAL
[2024-12-19 14:32] LABS: LEUKOCYTE ESTERASE ,URINE NEGATIVE (Neg); NITRITES, URINE NEGATIVE (Neg); OCCULT BLOOD,URINE NEGATIVE (Neg)
[2024-12-19 14:35] LABS: UA COLLECTION TYPE NON-SPECIFIED
[2024-12-19] MEDS: potassium Cl 20 mEq SR tablet PO STA (14:43)
[2024-12-19] MEDS: magnesium sulf-water 2g/50mL 50 ML IV ONE (14:43)
[2024-12-19 16:39] VITALS: BP 126/94; PULSE 81; RESP 18; TEMP 99; O2SAT 100
== END 2024-12-19 16:41 | disposition home or self-care (01) ==
LOC: ER 12:29
DX: G40.909 Epilepsy, unspecified, not intractable, without status epilepticus (principal); E87.6 Hypokalemia; E83.42 Hypomagnesemia; I25.10 Atherosclerotic heart disease of native coronary artery without angina pectoris; I25.2 Old myocardial infarction; J44.9 Chronic obstructive pulmonary disease, unspecified; Z88.0 Allergy status to penicillin; Z98.890 Other specified postprocedural states; Z95.1 Presence of aortocoronary bypass graft; Z79.82 Long term (current) use of aspirin; Z79.899 Other long term (current) drug therapy
CPT/HCPCS: 36415; 80048; 81003; 83735; 84145; 85008; 85025; 93005; 96361; 96365; 99284; A6258; J7030

== ENCOUNTER 2025-01-07 14:14 | Emergency (ER) | payer MEDICARE, BC, MEDICAID ==
[~2025-01-07] VITALS: Ht 147.3 cm; Wt 58.6 kg
--- NOTE | 2025-01-07 14:34 | ELECTROCARDIOGRAPH REPORT ---
[facility] Test Date: 2025-01-07 Test Time: 14:33:25 Pat Name: BOBBY GUTIERREZ Department: [facility] Patient ID: [facility]-[id number] Room: Gender: F Clinic Md Associate: : 1955 Requested By: ZULEMA HU Order Number: [id number] Reading MD: Dr. ISIAH Mae Measurements Intervals [place] Rate: 82 P: 75 [place]: 138 QRS: 86 QRSD: 83 T: 49 QT: 408 QTc: 477 Interpretive Statements Sinus rhythm Atrial premature complexes Borderline right axis deviation Low voltage, precordial leads Baseline wander in lead(s) I,II,aVR Electronically Signed On 01-08-2025 17:08:[address] ISIAH Mae Please click the below link to view image of tracing.
--- NOTE | 2025-01-07 14:59 | Physician Documentation ---
History of Present Illness General Chief Complaint: Edema Stated Complaint: RETAINING FLUID Time Seen by MD: 14:59 Primary Medical Doctor: DR YUNG History of Present Illness Initial Comments Patient is a 69-year-old female who states she has had worsening lower extremity swelling over last week and she has had a slightly increased shortness of breath. Patient states she has a history of CHF and COPD. She states that she did increase her Lasix to two pills a 40 mg today but she normally takes one pill of 40 mg a day. She denies any fevers. The patient denies any chest pain this is the patient's symptoms are moderate and persistent Medication Reconciliation Allergies: Coded Allergies: Penicillins (Verified Allergy, Mild, SWELLING, 07/13/24) Scheduled Amlodipine Besylate (Amlodipine Besylate), 1 TABLET PO DAILY Aripiprazole* (Abilify*), 5 MG PO DAILY, (Reported) Aspirin (Aspir 81), 1 TAB PO DAILY, (Reported) Atorvastatin Calcium (Atorvastatin Calcium), 1 TAB PO DAILY, (Reported) Carvedilol (Carvedilol), 1 TAB PO BID, (Reported) Gabapentin (Gabapentin), 1 CAP PO TID, (Reported) Lisinopril (Lisinopril), 1 TAB PO DAILY, (Reported) Multivitamin (Multi Vitamin Daily), 1 TAB PO DAILY Potassium Chloride* (K-Dur*), 1 TAB PO BID Prednisone* (Prednisone*), 1 TAB PO DAILY Quetiapine Fumarate (Seroquel), 1 TAB PO HS, (Reported) Thiamine HCl (Vitamin B-1), 1 TAB PO DAILY Tizanidine Hcl (Zanaflex), 1 CAP PO PRN, (Reported) Vancomycin HCl (Vancocin HCl), 1 CAP PO Q6H, (Reported) Scheduled PRN Ipratropium/Albuterol Sulfate (Combivent Respimat Inhal [place]), 2 PUFFS IH Q4H PRN for SOB or wheezing Miscellaneous Medications [Sodium Tabs], 1, (Reported) Past Medical History Past Medical History: No Pertinent History, Coronary Artery Disease, Myocardial Infarction, COPD, Hernia Past Surgical History: coronary bypass surgery, other Other Past Surgical History: hernia repair sx Smoking: Quit greater than 1 year Alcohol Use: Rarely Drug Use: none Lives with: Other Lives In: Home Occupation: retired Review of Systems All Other Systems at this time: Reviewed and Negative Physical Exam Physical Exam Vital Signs: Temperature: 98.3, Source: Oral, Heart Rate: 90, Respiratory Rate: 16, BP: 148/91, Pulse Oximetry: 92, Weight: 58.600 Oxygen Flow Rate: 2.0 Physical Exam VITALS: Reviewed and as above. GENERAL: Alert, no apparent distress. HEENT: Normocephalic, atraumatic, PERRL, EOMI, dry mucosa, no erythema RESPIRATORY: Trace crackles bilateral bases, no respiratory distress. CHEST: No accessory muscle use, no retractions CV: Regular rate, rhythm, 1+ edema bilaterally, no murmur, No: JVD GI: Soft, non-tender, bowels sounds present, no rebound, guarding, or rigidity BACK: No CVA tenderness, or swelling MUSCULOSKELETAL: No deformities, 1+ edema bilaterally SKIN: Warm and dry, no rash NEURO: Oriented x4, No motor or sensory deficit PSYCH: Normal mood and affect, no agitation Progress Results/Orders Results/Orders Orders - ZULEMA HU MD Chest,Single View (01/07/25 14:47) Monitor (01/07/25 14:27) Saline Lock (01/07/25 14:27) Oxygen (01/07/25 14:27) Hs Troponin I W Calculations (01/07/25 16:27) Hs Troponin I W Calculations (01/07/25 17:27) Abg Current Settings (01/07/25 ) Svn Treatment (01/07/25 15:56) Completed Orders - ZULEMA HU MD Chest,Single View (01/07/25 14:47) Cbc/Diff (01/07/25 14:27) BMP (01/07/25 14:27) PBNP (01/07/25 14:27) Electrocardiogram (01/07/25 14:27) Hs Troponin I W Calculations (01/07/25 14:27) Potassium Cl Sr Tablet (K-Dur Tablet) (01/07/25 15:44) Furosemide Inj (Lasix Inj) (01/07/25 15:45) MG (01/07/25 14:43) Ipratropium/Albuterol Nebule (Ipratrop/A (01/07/25 16:00) Albuterol 2.5mg/3ml Nebule (Proventil 2. (01/07/25 16:00) Medications Received in ER Medications (Trade) Dose Ordered Sig/[place] Route PRN Reason Start Time Stop Time Status Last Admin Dose Admin (ipratrop/ albuterol 0.5-3(2.5) MG/3ml nebule) 3 ml ONCE ONCE NEB 01/07/25 16:00 01/07/25 16:01 DC 01/07/25 16:10 3 ML (Proventil 2.5 MG/3ML nebule) 2.5 mg ONCE ONCE NEB 01/07/25 16:00 01/07/25 16:01 DC 01/07/25 16:10 2.5 MG Vital Signs 01/07/25 01/07/25 01/07/25 01/07/25 14:23 15:15 15:19 15:20 Temp 98.3 98.3 Pulse 90 80 Resp 16 14 B/P (MAP) 148/91 137/96 (110) Pulse Ox 92 97 97 O2 Delivery Nasal Cannula* O2 Flow Rate 2.0 2 2 FiO2 28 28 01/07/25 01/07/25 16:11 16:21 Pulse 76 80 Resp 16 18 Pulse Ox 98 98 O2 Delivery Nasal Cannula* Nasal Cannula* O2 Flow Rate 2 2 FiO2 28 28 Laboratory Tests Test 01/07/25 14:43 01/07/25 16:15 White Blood Count 4.6 Red Blood Count 3.11 L Hemoglobin 10.8 L Hematocrit 31.3 L Mean Corpuscular Volume 100.6 H Mean Corpuscular Hemoglobin 34.6 H Mean Corpuscular Hemoglobin Concent 34.4 Red Cell Distribution Width 17.6 H Platelet Count 473 H Mean Platelet Volume 7.3 L Neutrophils (%) (Auto) 48.0 Lymphocytes (%) (Auto) 34.1 Monocytes (%) (Auto) 14.7 H Eosinophils (%) (Auto) 2.4 Basophils (%) (Auto) 0.8 Neutrophils # (Auto) 2.2 Lymphocytes # (Auto) 1.6 Monocytes # (Auto) 0.7 Eosinophils # (Auto) 0.1 Basophils # (Auto) 0.0 CBC Comment Sodium Level 142 Potassium Level 3.3 L Chloride Level 96 L Carbon Dioxide Level 41.3 *H Anion Gap 5 L Blood Urea Nitrogen 11 Creatinine 0.77 Estimated GFR/1.73 m2 75 BUN/Creatinine Ratio 14.3 Glucose Level 98 Calcium Level 8.2 L Magnesium Level 1.4 L Troponin I High Sensitivity 5 Pro-B-Type Natriuretic Peptide 562 H Albumin 2.8 L Chemistry Comments Blood Gas Specimen Type Arterial Blood Gas Puncture Site Rr O2 Saturation 95.0 Arterial Blood pH (Temp corrected) 7.479 H Arterial Blood pCO2 (Temp correct) 49.6 H Arterial Blood pO2 (Temp corrected) 79.3 L Arterial Blood PO2/FiO2 Ratio 2.87 Arterial Blood HCO3 36.1 H Arterial Blood Base Excess 11.0 H Arterial Blood Oxyhemoglobin 94.4 Arterial Blood Carboxyhemoglobin 0.3 L Arterial Blood Methemoglobin 0.3 Arterial Blood Deoxyhemoglobin 5.0 Sam Test Positive Blood Gas Hemoglobin 11.2 L Blood Gas Temperature 36.8 Blood Gas Liter Flow 2 Blood Gas Modality Nasal cannula FiO2 28.0 EKG/XRAY/CT/US/VASC/MRI Chest X-Ray : Additional Comments Patient: BOBBY GUTIERREZ Medical Record: [id number] [facility] : 1955, Age: 69 Sex: Female Location: ER Patient Status: [facility] ER Service Date/Time: 01/07/251446 Ordering Physician: ZULEMA HU MD Exam: CHEST,SINGLE VIEW CLINICAL HISTORY: CP TECHNIQUE: Single view of the chest was obtained. COMPARISON: DI CHEST,SINGLE VIEW on DOS: 07/13/24, DI CHEST,SINGLE VIEW on DOS: 06/11/24, DI CHEST,SINGLE VIEW on DOS: 02/21/24, CT CT CHEST ABDOMEN PELVIS W/ IV CONTRAST on DOS: 02/20/24, DI CHEST,SINGLE VIEW on DOS: 02/20/24 FINDINGS: The heart size and pulmonary vasculature are normal. The lungs are clear. There are midline sternotomy wires. IMPRESSION: NO ACUTE CARDIOPULMONARY PROCESS. Electronically Signed by:KRISH RAYA MD Date & Time: 01/07/251453 Dictated by: KRISH RAYA MD Dictation date and time: 01/07/251444 Primary Care Provider: NO PRIMARY CARE PROVIDER cc: ZULEMA HU MD ~ Departure Disposition: 01 HOME / SELF CARE / HOMELESS Impression: Primary Impression: Edema Qualified Codes: R60.9 - Edema, unspecified Additional Impression: COPD (chronic obstructive pulmonary disease) with acute bronchitis Discharge Instructions: Edema Additional Instructions: Increase your Lasix to to 40 mg pills daily for the next five days. Take the prednisone for the next five days. Take 20 mEq of potassium twice a day for the next five days. If your symptoms do not improve return to the emergency department. Referrals: NO PRIMARY CARE PROVIDER (PCP) Prescriptions Prednisone* (Prednisone*) 20 Mg Tablet 1 TAB PO DAILY for 5 Days, #5 TAB Prov: ZULEMA HU MD 01/07/25 Potassium Chloride* (K-Dur*) 20 Meq Tab.prt.sr 1 TAB PO BID, #10 TAB Prov: ZULEMA HU MD 01/07/25 ZULEMA HU MD Jan 07, 2025 14:59
[2025-01-07 15:02] LABS: MEAN PLATELET VOLUME 7.3 FL (7.4-10.4); RED CELL DISTRIBUTION WIDTH 17.6 % (11.5-14.5)
[2025-01-07 15:31] LABS: CREATININE 0.77 MG/DL (0.40-0.90); PRO BRAIN NATRIURETIC PEPTIDE 562 PG/ML (0-125); eCRCL 45 ML/MIN; eGFR 75 ML/MIN
[2025-01-07 15:53] LABS: TOTAL CARBON DIOXIDE 41.3 MMOL/L (24-32)
[2025-01-07] MEDS: albuterol 2.5 MG/3 ML nebule NEB ONE (16:10)
[2025-01-07] MEDS: ipratropium/albuterol 3ml nebule NEB ONE (16:10)
[2025-01-07 16:11] VITALS: PULSE 76; RESP 16; O2SAT 98
[2025-01-07 16:18] LABS: ABG BASE EXCESS 11.0 mmol/L (-2.0-3.0); ABG HCO3 36.1 mmol/L (21.0-28.0); ABG OXYGEN SATURATION 95.0 % (94.0-98.0); ABG PCO2 (T) 49.6 mmHg (32.0-45.0); ABG PH (T) 7.479 (7.350-7.450); ABG PO2 (T) 79.3 mmHg (83.0-108.0); ALLEN'S TEST POSITIVE; FCOHb 0.3 % (0.5-1.5); FHHb 5.0 % (0.0-5.0); FIO2 28.0 mmHg/%; FLOW 2 L/min; FMetHb 0.3 % (0.0-1.5); FO2Hb 94.4 % (94.0-98.0); MODE NASAL CANNULA; PATIENT TEMPERATURE 36.8; TOTAL HEMOGLOBIN 11.2 G/dl (12.0-16.0)
[2025-01-07 16:21] VITALS: PULSE 80; RESP 18; O2SAT 98
[2025-01-07] MEDS: potassium Cl 20 mEq SR tablet PO STA (16:23)
[2025-01-07] MEDS: furosemide 10 MG/1 ML 10ml inj IV ONE (16:24)
[2025-01-07] MEDS ORDERED: PRED20TA PO (16:27)
[2025-01-07] MEDS ORDERED: POTA-207 PO (16:27)
[2025-01-07 17:26] VITALS: PULSE 75; RESP 16; TEMP 97.7; O2SAT 97
[2025-01-07 17:37] VITALS: BP 133/79
== END 2025-01-07 18:30 | disposition home or self-care (01) ==
LOC: ER 14:15
DX: J44.0 Chronic obstructive pulmonary disease with (acute) lower respiratory infection (principal); J20.9 Acute bronchitis, unspecified; R60.9 Edema, unspecified; Z88.0 Allergy status to penicillin; I50.9 Heart failure, unspecified; Z88.8 Allergy status to other drugs, medicaments and biological substances; Z95.1 Presence of aortocoronary bypass graft; Z98.890 Other specified postprocedural states; Z79.82 Long term (current) use of aspirin; Z79.899 Other long term (current) drug therapy
CPT/HCPCS: 36415; 36600; 71045; 80048; 82803; 83735; 83880; 84484; 85018; 85025; 93005; 94640; 96374; 99285; J1938; 94760